=== PATIENT | female | born 1995 | race Caucasian/White ===

== ENCOUNTER 2019-09-12 20:44 | Emergency (ER) | payer OTHER ==
[2019-09-12 22:22] LABS: ABSOLUTE EOSINOPHILS # (AUTO) 0.1 10^3/uL (0.0-0.6); ABSOLUTE LYMPHOCYTES (AUTO) 2.2 10^3/uL (0.5-4.7); ABSOLUTE MONOCYTES (AUTO) 0.6 10^3/uL (0.1-1.4); ABSOLUTE NEUT (AUTO) 5.9 10^3/uL (1.7-8.2); BASOPHILS % (AUTO) 0.2 % (0-2); EOSINOPHILS % (AUTO) 0.7 % (0-6); HEMATOCRIT 45.5 % (36.0-47.0); LYMPHOCYTES % (AUTO) 25.5 % (13-45); MEAN CORPUSCULAR HEMOGLOBIN 32.1 pg (27.0-33.4); MEAN CORPUSCULAR HGB CONC 35.3 g/dL (32.0-36.0); MEAN CORPUSCULAR VOLUME 91 fl (80-97); MONOCYTES % (AUTO) 6.4 % (3-13); PLATELET COUNT 165 10^3/uL (150-450); RED CELL DISTRIBUTION WIDTH 12.7 % (11.5-14.0); SEGMENTED NEUTROPHILS % (AUTO) 67.2 % (42-78); TOTAL CELLS COUNTED % (AUTO) 100 %; WHITE BLOOD COUNT 8.8 10^3/uL (4.0-10.5)
[2019-09-12 22:33] LABS: APPEARANCE,URINE SLIGHTLY-CLOUDY; BILIRUBIN,URINE NEGATIVE (NEGATIVE); CALCIUM OXALATE CRYSTALS,URINE MANY /HPF; COLOR,URINE YELLOW; GLUCOSE, URINE NEGATIVE (NEGATIVE); KETONES,URINE NEGATIVE (NEGATIVE); LEUKOCYTE ESTERASE,URINE SMALL (NEGATIVE); NITRITE,URINE NEGATIVE (NEGATIVE); PROTEIN,URINE NEGATIVE (NEGATIVE); URINE SPECIFIC GRAVITY 1.024
[2019-09-12 22:39] LABS: ALBUMIN 4.9 g/dL (3.5-5.0); ALKALINE PHOSPHATASE 86 U/L (38-126); ANION GAP 7 (5-19); ASPARTATE AMINO TRANSFERASE 20 U/L (14-36); BILIRUBIN,TOTAL 1.4 mg/dL (0.2-1.3); BLOOD UREA NITROGEN 10 mg/dL (7-20); CALCIUM 9.8 mg/dL (8.4-10.2); CARBON DIOXIDE 29 mmol/L (22-30); CHLORIDE 104 mmol/L (98-107); GLUCOSE 96 mg/dL (75-110); POTASSIUM 4.7 mmol/L (3.6-5.0); TOTAL PROTEIN 8.1 g/dL (6.3-8.2)
[2019-09-13] MEDS ORDERED: SULFAMETHOXAZOLE/TRIMETHOPRIM 800-160 MG TABLET PO ONE (01:02)
[2019-09-13] MEDS ORDERED: PHENAZOPYRIDINE HCL 200 MG TABLET PO ONE (01:02)
[2019-09-13 01:26] VITALS: BP 128/91
--- NOTE | 2019-09-13 04:24 | ER Document Report ---
Entered by CHRISTI SUGGS SCRIBE 09/13/19 0036 Acting as scribe for:FOUZIA GALVEZ IV, MD ED GI/ - General Chief Complaint: Abdominal Pain Stated Complaint: LOWER ABDOMINAL PAIN Time Seen by Provider: 09/13/19 00:35 Primary Care Provider: VALE KAUFFMAN MD [HONORARY] - Follow up as needed Mode of Arrival: Ambulatory Information source: Patient Notes: This 24 year old female patient with a history of UTIs and a prolapsed bladder presents to the ED today with complaints of UTI symptoms and worsening bulging of the urethra that started prior to arrival. Patient reports dysuria, urinary frequency, burning with urination, and hematuria. She states that she took Pyridium for her last UTI x5 years ago. Denies history of prolapsed uterus. Denies abdominal pain, nausea, vomiting, or diarrhea. Denies unilateral flank pain with radiation to groin on same side, diaphoresis, or inability to find a comfortable position. - Related Data Allergies/Adverse Reactions: No Known Allergies Allergy (Unverified 09/12/19 21:33) Past Medical History - General Information source: Patient, [facility] Records - Social History Smoking Status: Never Smoker Cigarette use (# per day): No Chew tobacco use (# tins/day): No Smoking Education Provided: No Family History: Reviewed & Not Pertinent Patient has suicidal ideation: No Patient has homicidal ideation: No Renal/ Medical History: Reports: Other - Hx Cystocele Review of Systems - Review of Systems Constitutional: See HPI. denies: Diaphoresis EENT: No symptoms reported Cardiovascular: No symptoms reported Respiratory: No symptoms reported Gastrointestinal: See HPI. denies: Abdominal pain, Diarrhea, Nausea, Vomiting Genitourinary: See HPI, Burning, Dysuria, Frequency, Hematuria. denies: Flank pain Female Genitourinary: No symptoms reported Musculoskeletal: No symptoms reported Skin: No symptoms reported Hematologic/Lymphatic: No symptoms reported Neurological/Psychological: No symptoms reported -: Yes All other systems reviewed and negative Physical Exam - Vital signs Vitals: Temp Pulse Resp BP Pulse Ox 98.2 F 113 H 16 118/79 96 09/12/19 20:49 09/12/19 20:49 09/12/19 20:49 09/12/19 20:49 09/12/19 20:49 - General General appearance: Appears well, Alert In distress: None - HEENT Head: Normocephalic, Atraumatic Eyes: Normal Pupils: PERRL - Respiratory Respiratory status: No respiratory distress Chest status: Nontender Breath sounds: Normal Chest palpation: Normal - Cardiovascular Rhythm: Regular Heart sounds: Normal auscultation Murmur: No Friction rub: No Gallop: None auscultated - Abdominal Inspection: Normal Distension: No distension Bowel sounds: Normal Tenderness: Nontender - Abdomen soft Organomegaly: No organomegaly - Genitourinary External exam: Normal Notes: 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 Edematous and erythematous urethra visualized. Mild tenderness to palpation of urethra. Through digital exam of the genitalia, the uterus is retroflexed and felt in the posterior vaginal wall. - Back Back: Normal, Nontender. No: CVA tenderness - Extremities General upper extremity: Normal inspection General lower extremity: Normal inspection - Neurological Neuro grossly intact: Yes - Psychological Associated symptoms: Normal affect, Normal mood - Skin Skin Temperature: Warm Skin Moisture: Dry Skin Color: Normal Course - Re-evaluation Re-evalutation: 09/13/19 01:03 Results of ED MSE discussed with patient. All questions were answered prior to discharge. Emergency signs and symptoms, reasons to return to the emergency department discussed with patient. - Vital Signs Vital signs: Temp Pulse Resp BP Pulse Ox 97.9 F 92 16 128/91 H 97 09/13/19 01:23 09/13/19 01:23 09/13/19 01:23 09/13/19 01:23 09/13/19 01:23 - Laboratory Result Diagrams: 09/12/19 21:49 09/12/19 21:49 Laboratory results interpreted by me: 09/12/19 09/12/19 09/12/19 21:49 21:49 21:49 Hgb 16.0 H Total Bilirubin 1.4 H Urine Blood MODERATE H Urine Urobilinogen 2.0 H Ur Leukocyte Esterase SMALL H Discharge - Discharge Clinical Impression: UTI (urinary tract infection) Qualifiers: Urinary tract infection type: site unspecified Hematuria presence: with hematuria Qualified Code(s): N39.0 - Urinary tract infection, site not specified; R31.9 - Hematuria, unspecified Condition: Good Disposition: HOME, SELF-CARE Instructions: Trimethoprim-Sulfa ([facility]), Urinary Tract Infection ([facility]) Additional Instructions: Return to the Emergency Department without delay if any worse. HOME CARE INSTRUCTIONS & INFORMATION: Thank you for choosing us for your medical needs. We hope you're satisfied with the care you received. After you leave, you must properly care for your problem and, at the same time, observe its progress. Any condition can change. Some illnesses can change rapidly over hours or days. If your condition worsens, return to the Emergency Department or see your physician promptly. ABOUT YOUR X-RAYS AND EKG'S: If you had an EKG or X-rays taken, they have been read by the Emergency Physician. The X-rays and EKG's will also be read by a Radiologist or Instructional Resource Teacher within 24 hours. If discrepancies are noted, you will be notified by telephone. Please be certain the ED has a correct telephone number & address where you can be reached. Also, realize that some fractures or abnormalities do not show up on initial X-rays. If your symptoms continue, see your physician. ABOUT YOUR LABORATORY TEST: If you had laboratory tests, the results have been reviewed by the Emergency Physician. Some test results (for example cultures) may not be available for several days. You will be contacted if any test result shows you need additional treatment. Please be certain the ED has a correct telephone number and address where you can be reached. ABOUT YOUR MEDICATIONS: You will receive instructions on how to take your medicine on the prescription label you receive. Additional information may be provided by the Pharmacy. If you have questions afterwards, call the ED for clarification or further instructions. Some prescribed medications may cause drowsiness. Do not perform tasks such as driving a car or operating machinery without consulting your Pharmacist. If you feel you need a refill of pain medication, your condition will need re-evaluation. Please do not call for a refill of any medication. ABOUT YOUR SIGNATURE: Signature of this document acknowledges to followin. Understanding that you received emergency treatment and that you may be released before al medical problems are known or treated. Please be certain the ED has a correct phone number & address where you can be reached. 2. Acknowledgement that you will arrange for follow-up care as recommended. 3. Authorization for the Emergency Physician to provide information to your follow-up Physician in order to maximize your care. AT ANY TIME, IF YOUR SYMPTOMS CHANGE SIGNIFICANTLY OR WORSEN OR YOU DEVELOP NEW SYMPTOMS, RETURN TO THE EMERGENCY DEPARTMENT IMMEDIATELY FOR RE-EVALUATION. OUR GOAL IS TO PROVIDE EXCELLENT MEDICAL CARE! WE HOPE THAT WE HAVE MET YOUR EXPECTATIONS DURING YOUR EMERGENCY DEPARTMENT VISIT AND THAT YOU FEEL YOU HAVE RECEIVED EXCELLENT CARE! Urinary Tract Infection Your evaluation indicates that you have a urinary tract infection. This is due to germs growing in the bladder. This is a common problem. This infection usually responds quickly to antibiotics. Your antibiotic should be taken exactly as prescribed. Drink plenty of fluids -- three to four quarts a day. Occasionally, a bladder anesthetic will be prescribed to help stop the feeling of urgency until the antibiotic has a chance to clear the infection. This may cause your urine to be dark orange. Certain urine infections require a culture. If the doctor obtained a culture, the results will be back in two days. You should call to see if a change in treatment is needed. A repeat urinalysis after you finish treatment is often recommended. The physician will let you know if further testing is required. Call the doctor if you develop fever, chills, flank pain, inability to urinate, or blood in the urine. Prescriptions: Sulfamethoxazole/Trimethoprim [Bactrim Ds Tablet] 2 tab PO BID 7 Days #28 tablet Phenazopyridine HCl [Pyridium 200 mg Tablet] 200 mg PO TID 2 Days #6 tablet Referrals: VALE KAUFFMAN MD [HONORARY] - Follow up as needed I personally performed the services described in the documentation, reviewed and edited the documentation which was dictated to the scribe in my presence, and it accurately records my words and actions.
== END 2019-09-13 01:25 | disposition home or self-care (01) ==
LOC: ER 20:44
DX: N39.0 Urinary tract infection, site not specified (principal); R31.9 Hematuria, unspecified
CPT/HCPCS: 99283; 36415; 84702; 83690; 85025; 80053; 81001; J3490